=== PATIENT | male | born 1990 | race Caucasian/White ===

== ENCOUNTER 2017-02-03 20:47 | Emergency (ER) | payer SELFPAY ==
--- NOTE | 2017-02-03 22:01 | EDM.PDOC ---
ED HPI GENERAL MEDICAL PROBLEM - General Chief Complaint: Lower Extremity Injury/Pain Stated Complaint: RT ANKLE BROKE Time Seen by Provider: 02/03/17 21:00 Source of Information: Reports: Patient, Family History Limitations: Reports: No Limitations - History of Present Illness INITIAL COMMENTS - FREE TEXT/NARRATIVE: 26 y.o.w.m with a h/o Hepatitis C, came to the ed with his SO due to right ankle pain after he twisted his r ankle at a pavement 3 weeks ago. He was see at , an X Ray was not done at that time. Pt refused X Rays because he had no insurance. Pt came to the ed today because his symptoms do not improve and he is not able to walk well. No new trauma, no other acute medical issues. BP 156/ 69 pulse 105 RR 17 Temp 36.6 Pulse ox 99% on RA Onset Date: 01/06/17 Onset Time: 08:00 Duration: Week(s):, Getting Worse, Intermittent Location: Reports: Lower Extremity, Right Quality: Reports: Ache, Dull, Pressure, Throbbing Severity: Moderate Improves with: Reports: Rest Worsens with: Reports: Movement Context: Reports: Trauma (3 weeks ago twisted r ankle. ) Associated Symptoms: Reports: No Other Symptoms Treatments GEOSPATIAL ANALYST: Reports: NSAIDS Rt ankle Pain Score (Numeric/FACES): 10 - Related Data Allergies Allergy/AdvReac Type Severity Reaction Status Date / Time No Known Allergies Allergy Verified 02/03/17 21:12 Home Meds: Home Meds NK [No Known Home Meds] 02/03/17 [History] Past Medical History Other Musculoskeletal History: femur fracture, screw in the knees Psychiatric History: Reports: Depression - Infectious Disease History Infectious Disease History: Reports: Hepatitis C Social & Family History - Family History Family Medical History: Noncontributory - Tobacco Use Smoking Status *Q: Current Every Day Smoker Years of Tobacco use: 8 Packs/Tins Daily: 0.5 - Caffeine Use Caffeine Use: Reports: Energy Drinks, Soda - Recreational Drug Use Recreational Drug Use: No Review of Systems - Review of Systems Review Of Systems: See Below Constitutional: Reports: No Symptoms Eyes: Reports: No Symptoms Ears: Reports: No Symptoms Nose: Reports: No Symptoms Mouth/Throat: Reports: No Symptoms Respiratory: Reports: No Symptoms Cardiovascular: Reports: No Symptoms GI/Abdominal: Reports: No Symptoms Genitourinary: Reports: No Symptoms Musculoskeletal: Reports: Joint Pain (right ankle) Skin: Reports: No Symptoms Neurological: Reports: No Symptoms Psychiatric: Reports: No Symptoms ED EXAM, GENERAL - Physical Exam Exam: See Below Exam Limited By: No Limitations General Appearance: Alert, WD/WN, Mild Distress Eye Exam: Bilateral Eye: Normal Inspection Ears: Normal External Exam Ear Exam: Bilateral Ear: Auricle Normal Nose: Normal Inspection, Normal Mucosa, No Blood Throat/Mouth: Normal Inspection, Normal Lips Head: Atraumatic, Normocephalic Neck: Normal Inspection, Supple, Non-Tender Respiratory/Chest: No Respiratory Distress, Lungs Clear, Normal Breath Sounds, No Accessory Muscle Use, Chest Non-Tender Cardiovascular: Normal Peripheral Pulses, Regular Rate, Rhythm, No Edema, No Gallop Peripheral Pulses: 1+: Brachial (L) GI/Abdominal: Normal Bowel Sounds, Soft, Non-Tender (Male) Exam: Deferred Rectal (Males) Exam: Deferred Back Exam: Normal Inspection, Full Range of Motion Extremities: Normal Range of Motion, Joint Swelling (right ankle lat spect) Neurological: Alert, Oriented, CN II-XII Intact, Normal Cognition, Abnormal Gait Psychiatric: Normal Affect, Normal Mood Skin Exam: Warm, Dry, Intact, Normal Color, No Rash Lymphatic: No Adenopathy Course - Vital Signs Text/Narrative:: 26 y.o.w.m with a h/o Hepatitis C, came to the ed with his SO due to right ankle pain after he twisted his r ankle at a pavement 3 weeks ago. He was see at , an X Ray was not done at that time. Pt refused X Rays because he had no insurance. Pt came to the ed today because his symptoms do not improve and he is not able to walk well. No new trauma, no other acute medical issues. BP 156/ 69 pulse 105 RR 17 Temp 36.6 Pulse ox 99% on RA PE: WNWD W M NAD with limited range of motion of right ankle, right lat ankle swelling, no open wound. Imaging: Comminuted Fx right distal fibula, closed Impression: Comminuted right distal fibula fx, 3 weeks old Tx: Toradol, Ice, elevation, long boot, crutches. Reexam: Improved Plan: D/C with instructions Last Recorded V/S: Last Vital Signs Temp 36.5 C 02/03/17 22:20 Pulse 104 H 02/03/17 22:20 Resp 17 02/03/17 22:20 BP 140/94 H 02/03/17 22:20 Pulse Ox 98 02/03/17 22:20 - Orders/Labs/Meds Orders: Active Orders 24 hr Category Date Time Status Ankle Min 3V Rt [CR] Stat Exams 02/03/17 21:02 Taken Meds: Medications Discontinued Medications Generic Name Dose Route Start Last Admin Trade Name Halle PRN Reason Stop Dose Admin Ketorolac Tromethamine 60 mg 02/03/17 22:03 02/03/17 22:10 Toradol IM 02/03/17 22:04 60 mg ONETIME ONE Administration Departure - Departure Time of Disposition: 21:58 Disposition: Home, Self-Care 01 Condition: Good Clinical Impression: Fracture of distal end of fibula Qualifiers: Encounter type: initial encounter Fracture type: closed Fracture morphology: other fracture Laterality: right Qualified Code(s): S82.831A - Other fracture of upper and lower end of right fibula, initial encounter for closed fracture - Discharge Information Instructions: Ankle Fracture, [id number], Crutch Use Referrals: Song Goff MD [Primary Care Provider] - Forms: ED Department Discharge Additional Instructions: Please f/u with ortho a.s.a.p, rest, ice, rst and elevation, motrin for pain, weight bearing as tolerated. Please come back if your symptom get worse acutely - My Orders Last 24 Hours: My Active Orders 02/03/17 21:02 Ankle Min 3V Rt [CR] Stat - Assessment/Plan Last 24 Hours: My Active Orders 02/03/17 21:02 Ankle Min 3V Rt [CR] Stat
[2017-02-03] MEDS ORDERED: Ketorolac 60 MG/2 ML SDV IM ONE (22:03)
--- NOTE | 2017-02-07 10:45 | CR ---
INDICATION: Trauma one week ago. RIGHT ANKLE: Three views of the right ankle revealed an oblique - spiral fracture through the distal shaft - metaphysis of the fibula with 1.5 to 2-mm lateral offset of the distal fracture fragment. The ankle mortise otherwise appeared to be intact, with no other fracture or dislocation, or other definite bone or joint abnormality identified. IMPRESSION: Distal fibular fracture with adequate position and alignment - approximately 1.5 to 2-mm lateral offset distal fracture fragment of the fibula is noted. MTDD
== END 2017-02-03 22:20 | disposition home or self-care (01) ==
LOC: FB.ED 20:47
DX: S82.831A Other fracture of upper and lower end of right fibula, initial encounter for closed fracture (principal); F17.210 Nicotine dependence, cigarettes, uncomplicated; X50.1XXA Overexertion from prolonged static or awkward postures, initial encounter; Y92.480 Sidewalk as the place of occurrence of the external cause
CPT/HCPCS: 73610; 96372; 99283; J1885